=== PATIENT | male | born 1960 | race Caucasian/White ===

== ENCOUNTER 2025-03-18 09:06 | Day surgery (SDC) | payer OTHER, SELFPAY ==
--- NOTE | 2025-02-20 09:54 | HPS.HSE ---
Family Physician
-
Family Physician: NO INTERVIEW UNKNOWN
Chief Complaint
-
Persistent atrial fibrillation.
History of Present Illness
The patient is a 64 year old male presenting today for persistent atrial fibrillation. The patient reports symptoms such as heart 'fluttering', chest and throat tightness, shortness of breath, lightheadedness, and decreased exercise
capacity likely secondary to this diagnosis. He previously underwent a cardioversion in October 2024 for his arrhythmia. Despite multiple attempts, his cardioversion was ultimately unsuccessful. He is currently on pharmacological therapy with
Metoprolol Succinate. He reports compliance with Xarelto for oral anticoagulation due to a CHADS-VASc of 1. He notes that his current symptoms associated with his arrhythmia greatly interfere with his activities of daily living and overall impact
his quality of life. He is interested in pursuing pulmonary vein isolation for more definitive arrhythmia management. He denies any current complaints today such as chest pain and shortness of breath at rest, nausea, vomiting, diarrhea, dizziness,
cough, sore throat, or fever.
Medical History
Past Medical History
Past Medical History: Reports Other
Additional Past Medical History:
1. Persistent atrial fibrillation, status post cardioversion 10/2024; pharmacological therapy with Metoprolol Succinate and oral anticoagulation with Xarelto.
2. Hyperlipidemia.
3. Mild coronary artery calcifications.
4. Obstructive sleep apnea, compliant with CPAP.
5. GERD.
6. Diverticulosis.
7. Hepatic cyst.
8. Peripheral neuropathy.
9. Degenerative disc disease.
10. Left thyroid nodule on pre-ablation chest CT.
11. Fibromyalgia.
12. Obesity, BMI 34.9.
Past Surgical History: Reports Other
Additional Past Surgical History:
1. Cardioversion.
2. Colonoscopy.
Social History
Tobacco: Non-smoker
Alcohol: Other (Rare use reported. )
Personal:
Living: Other (He lives with his and 2 sons in a twin style home. )
Family History
Family History: Not pertinent
Allergies / Home Medications
Allergy/Medication List:
Home medications:
1. Cyanocobalamin 1000 mcg p.o. daily at 1 PM.
2. Duloxetine 60 mg p.o. daily at 1 PM.
3. Metoprolol Succinate 75 mg p.o. daily at 1 PM.
4. Multivitamin gummy 2 gummies p.o. daily at 1 PM.
5. Xarelto 20 mg p.o. daily at 1 PM.
Allergies: No known allergies.
Review of Systems
-
A 12 point ROS was completed and negative except as noted: Yes
Physical Exam
Vital Signs
Blood pressure: 122/84. Heart rate 95. Respirations 18. Pulse ox 95% on room air.
Height 6 feet, 1 inch. Weight 120.1 kg. BMI 34.9.
Physical Exam
General: Well Developed, Well Nourished and No Apparent Distress
HEENT: NormoCephalic, Moist mucous membranes, Atraumatic and PERRLA
Respiratory: Clear
Cardiac: Irregular Rhythm
GI: Soft, Non Tender, Non Distended and Other (Obese. )
Musculoskeletal: No Edema and Normal Gait & Station
Skin: Warm and Dry
Neuro: AO x 3 and Nonfocal/grossly intact
Psych: Anxious
Laboratory Results
-
DIAGNOSTIC STUDIES as of 02/20/2025: White blood cell count 4.5. Hemoglobin 15.7. Platelet count 207,000. PT 18.1. INR 1.47. Sodium 141. Potassium 4.4. BUN 18. Creatinine 1.0. Glucose 74. Calcium 9.5. Magnesium 2.1. AST 29. ALT 26. Albumin 5.0.
Type and screen A positive.
EKG 02/20/2025: Atrial fibrillation. Left axis deviation. Inferior infarct.
Chest CT 02/20/2025: Single, individual left and right superior and inferior pulmonary veins. No left atrial filling defect/thrombus is identified. Incidental 2.7 cm nodule of the left lobe of the thyroid gland, which could be more completely
evaluated with a thyroid gland ultrasound.
Impression/Plan
-
IMPRESSION/PLAN:
1. Persistent atrial fibrillation: The patient is in need of pulmonary vein isolation with Dr. Faustino Rubio on 03/18/2025. The benefits and risks of the procedure have been explained to the patient. The patient understands these risks and wishes to
proceed. He will not be required to undergo a pre-procedural transesophageal echocardiogram as he has been compliant with his home oral anticoagulation. He is aware to continue his Xarelto up until the night prior to his procedure. He will take no
medications the morning of his ablation.
2. Left-sided thyroid nodule on pre-ablation chest CT: His nodule should not impact the timing of his upcoming procedure. He was notified of his nodule through phone call. A copy of his chest CT was forwarded to his primary care physician, Dr. Crowley
Kiya, for further assessment.
[2025-02-20 13:41] LABS: % Basophils 1.1 % (0-2); % Eosinophils 1.6 % (0-6); % Immature Granulocytes 0.2 % (0-0.5); % Lymphocytes 33.3 % (20.5-51.1); % Monocytes 9.1 % (1.7-9.3); % Neutrophils 54.7 % (42.2-75.2); Absolute Basophils 0.1 10^3/uL (0-0.2); Absolute Eosinophils 0.1 10^3/uL (0-0.7); Absolute Lymphocytes 1.5 10^3/uL (1.2-3.4); Absolute Monocytes 0.4 10^3/uL (0.1-0.6); Absolute Neutrophils 2.5 10^3/uL (1.4-6.5); Hematocrit 45.5 % (39.0-52.0); Hemoglobin 15.7 g/dL (13.0-18.0); Mean Corp Hgb Conc. 34.5 g/dL (33.0-37.0); Mean Corpuscular Hgb 30.4 pg (27.0-31.0); Mean Corpuscular Volume 88.2 fL (80.0-94.0); Mean Platelet Volume 11.2 fL (7.4-10.4); Nucleated Red Blood Cells % 0 % (-); Platelet Count 207 10^3/uL (130-400); Red Blood Cell Count 5.16 10^6/uL (4.70-6.10); Red Cell Dist. Width 13.3 % (11.5-14.5); White Blood Cell Count 4.5 10^3/uL (4.8-10.8)
[2025-02-20 14:01] LABS: ALT (SGPT) 26 U/L (0-50); AST (SGOT) 29 U/L (17-59); Alkaline Phosphatase 59 U/L (38-126); Blood Urea Nitrogen 18 mg/dl (9-20); Calcium 9.5 mg/dl (8.4-10.2); Carbon Dioxide 22 mmol/L (22-30); Chloride 107 mmol/L (98-107); Glucose 74 mg/dl (70-99); Magnesium 2.1 mg/dl (1.6-2.3); Potassium 4.4 mmol/L (3.5-5.1); Sodium 141 mmol/L (135-145); Total Bilirubin 1.1 mg/dl (0.2-1.3); Total Protein 7.3 g/dl (6.3-8.2); eGFR > 60.00
[2025-02-20 14:03] LABS: INR 1.47; PT 18.1 Sec (11.4-14.6)
[2025-02-24 13:42] VITALS: BMI 34.9
[2025-03-18] VITALS (33 sets, daily range): BP systolic 81–140; BP diastolic 51–86; BMI 35.7
--- NOTE | 2025-03-18 10:31 | ITS.CL.ABL ---
[facility] - Ablation
Ablation
Procedure Report:
Primary Manager Creative: Dr William Avelar
Procedure Date: 03/18/2025
Patient History:
Patient is a pleasant 64-year-old male with a past medical history significant for hypercholesterolemia, sleep apnea, diverticulosis, obesity, and symptomatic persistent atrial fibrillation.
See H&P for complete details.
Indication:
Symptomatic persistent atrial fibrillation
Failed antiarrhythmic medical therapy
Failed cardioversion
Arrhythmia Specific History:
Prior Medical Therapies for Rate and Rhythm Control:
X Beta-jacqueline
[ ] Calcium channel-jacqueline
[ ] Amiodarone
[ ] Dronederone
[ ] Sotalol
X Flecainide
[ ] Dofetilide
[ ] Options limited by bradycardia
[ ] Options limited by comorbid renal disease
Prior Procedural Therapies for AF/AFL:
X Cardioversion
[ ] Pulmonary Vein Isolation
[ ] Posterior Wall Isolation
[ ] Additional lines (Specify)
[ ] Surgical Montes-MAZE or PVI (Specify)
Procedure Performed:
X AF ablation procedure (32466) -- includes LA/CS pacing, trans-septal, 3D mapping, + ICE
[ ] +IV drug (72050)
[ ] +Other Arrhythmia (65417)
X +Other AF Line/ablation (79737) -- PFA posterior wall, PFA floor, PFA roof
Risks and expected recovery has been explained in detail. Alternative options have been explored, and in a shared-decision making fashion we have decided that this was the most appropriate procedure.
Method
NPO status confirmed. Grounding pad applied. Defibrillator pads applied. Continuous surface ECG, pulse oximetry, and blood pressure were monitored. Procedure was performed under general anesthesia, with anesthesia services.
Both groins were clipped, prepped with Chloraprep, and draped in sterile fashion. Time out was called. Local anesthesia administered with bupivacaine. The right femoral vein was accessed for catheter placement, using ultrasound guidance (images
saved to record), micro-puncture needle/wire, and modified seldinger technique. 3 sheaths were placed. The following catheters were used:
[ ] Tacticath SE (D/F Curve) ablation catheter
X Viewflex 9Fr ICE catheter
X Inquiry decapolar 6Fr diagnostic catheter
[ ] CRD Hex 6Fr
[ ] Arctic Front Advance Cryoballoon ([ ]28mm[ ]23mm)
[ ] Achieve Advance mapping catheter ([ ]15mm[ ]20mm)
X FlexCath Contour 10 Fr with PulseSelect PFA Catheter
X Advisor HD Grid Mapping Catheter, SE
[ ] AcusGameLayers AcuNav 8 Fr ICE catheter
[ ]Other: [ ]
Intracardiac ultrasound (ICE) was carefully advanced into the right atrium to guide sheath placement over a J-wire, catheter placement, guide trans-septal puncture, identify potential complications, identify anatomic structures and ensure proper
contact between ablation catheter and tissue. A trace pericardial effusion located basal LV was noted at the initiation of case. This remained unchanged during procedure and at case completion.
Heparin was given prior to trans-septal puncture. Heparin was given to achieve and maintain a target ACT of 300-400 seconds throughout the procedure.
Trans-septal access was performed under ICE guidance. The trans-septal puncture was performed with a SafeSept wire through a Brockenbrough needle assembly through the steerable sheath. The wire was visualized as it entered the LSPV and system
advanced under ICE guidance and fluoroscopy into the LA. The Brockenbrough needle assembly, SafeSept wire and sheath dilator were removed under negative pressure. LA pressure was measured and recorded.
ICE and 3D mapping was performed to identify relevant cardiac structures. A careful 3D map was created to assess for regions of low-voltage and abnormal electrogram signals using HD grid mapping catheter and PulseSelect catheter. Additional mapping
was performed as outlined below.
Prior to ablation, glycopyrrolate was provided. PulseSelect catheter was advanced over J-wire to the ostium of each vein. Pulmonary vein isolation was performed with ostial and antral lesions in a circumferential manner. Contact was visualized via
EAM, ICE, fluoroscopy, and EGM signals. Posterior wall isolation was performed by anchoring the J-wire within the pulmonary vein and placing the PulseSelect catheter in contact with the posterior wall as visualized by aforementioned methods.
Following completion of ablation lesions, sinus rhythm was restored with a 200J synchronized DCCV and a post-ablation voltage/activation map was performed in sinus rhythm. Entrance and exit block were confirmed for each vein and the posterior wall.
Catheter and sheath were removed from the left atrium and post-ablation intracardiac echo evaluation was consistent with pre-ablation with no changes and no pericardial effusion and there is no left atrial thrombus or left ventricle thrombus seen.
Electrophysiology study was performed. Hemostasis was obtained with Vascade for each sheath and with manual pressure. Protamine was used for reversal.
Estimated Blood Loss
5 mL
Complications
None
Fluoroscopy: 2.9 minutes; 29.07 mGy; DAP 3.97
LA Pressure: Pre 8 mmHg, post 12 mmHg
Baseline Intervals:
Rhythm: AF
QRS: 93 ms
QT: 238 ms
Post-Procedure Intervals:
NJ: 144 ms
QRS: 102 ms
QT: 394 ms
QTc: 384 ms
AVWB: 370 ms
AVNERP: 600/300 ms
AERP: 600/220 ms
Recommendations
- Bedrest with straight-leg precautions as ordered
- Anticipate same day discharge if patient meeting clinical metrics
- Resume home medications as indicated
- Ok to resume anticoagulation tonight if patient and groin sites stable
- PPI daily for 30 days
- Plan for follow-up in office as scheduled
Faustino Rubio, DO, FACC, RS
Clinical Cardiac Yard Operator
cc: Dr William Avelar; Dr Carline Huertas
[2025-03-18 11:50] LABS: ACT-LR - POC 316 Seconds (116-155)
[2025-03-18 12:07] LABS: ACT-LR - POC 282 Seconds (116-155)
[2025-03-18 12:13] LABS: ACT-LR - POC 292 Seconds (116-155)
[2025-03-18 12:25] LABS: ACT-LR - POC 379 Seconds (116-155)
--- NOTE | 2025-03-18 14:13 | PTCARENOTE ---
Dr Joel at pt bedside speaking to pt and pt's .
[2025-03-18] MEDS: ANESTHETIC LOZENGE 1 LOZENGE PO (14:32)
[2025-03-18] MEDS: NSS 250 IV (16:05)
--- NOTE | 2025-03-18 16:36 | W.PN.UPDATE ---
Update Note
Progress Note Update
Pt seen post PFA. Right groin site without ht/bleeding. OOB ambulating, some hypotension with SBP 80s, with associated LH. Returned to bed and given NSS iv fluid bolus with good response, symptoms resolved and BP now >100. Resume Xarelto this
evening. Followup with Dr. Avelar as scheduled. Home today if groin site/tele/BP stable.
[2025-03-19 07:58] LABS: ACT-LR - POC > 397 Seconds (116-155)
== END 2025-03-18 17:20 | disposition home or self-care (01) ==
LOC: CATH 09:06
PROVIDERS: ATTENDING PHYSICIAN Internal Medicine Cardiovascular Disease; FAMILY PHYSICIAN Family Medicine; OTHER PHYSICIAN Internal Medicine Cardiovascular Disease
DX: I48.19 Other persistent atrial fibrillation (principal); E78.00 Pure hypercholesterolemia, unspecified; G47.33 Obstructive sleep apnea (adult) (pediatric); K21.9 Gastro-esophageal reflux disease without esophagitis; E04.1 Nontoxic single thyroid nodule; E66.9 Obesity, unspecified; Z68.34 Body mass index [BMI] 34.0-34.9, adult; I25.10 Atherosclerotic heart disease of native coronary artery without angina pectoris; Z79.01 Long term (current) use of anticoagulants
CPT/HCPCS: C1732; C1894; C1730; C1769; C1733; C1766; 36415; 75572; 80053; 83735; 85025; 85347; 85610; 86850; 86900; 86901; 93005; 93656; 93657; C1760; Q9967

== ENCOUNTER 2025-08-11 09:52 | Day surgery (SDC) | payer OTHER, SELFPAY ==
--- NOTE | 2025-08-11 11:45 | ITS.CL.CARDI ---
Internal Communications Manager - Cardioversion
Cardioversion
Procedure Report:
Procedure: Direct current electrical cardioversion
Pre-operative diagnosis: Persistent atrial fibrillation
Post-operative diagnosis: Persistent atrial fibrillation status post DC cardioversion to sinus rhythm
Anesthesia: MAC
Attending Physician: Solomon Mckeon MD
Procedure Description: The patient was brought to the electrophysiology laboratory in the fasting state. Adherence to anticoagulation regimen was confirmed. Informed consent was obtained from the patient prior to the start of the procedure.
Electrodes were placed on the patient and connected to an external defibrillator. Monitoring of blood pressure, ECG tracings, and pulse oximetry was initiated. The pads were applied to the patient in the anterior and posterior positions. The patient
was sedated by the anesthesiologist. A 200 joule biphasic synchronized shock was delivered to the patient under MAC anesthesia. Sinus rhythm was successfully restored. The patient recovered uneventfully from MAC anesthesia. There were no immediate
post-procedure complications. The patient left the lab in good condition. The attending physician was present throughout the entire procedure.
Impression: Successful direct current cardioversion with adventism of sinus rhythm after one 200 joule biphasic synchronized shock.
== END 2025-08-11 12:44 | disposition home or self-care (01) ==
LOC: CATH 09:52
PROVIDERS: ATTENDING PHYSICIAN Internal Medicine Cardiovascular Disease; FAMILY PHYSICIAN Family Medicine
DX: I48.19 Other persistent atrial fibrillation (principal); R00.1 Bradycardia, unspecified
CPT/HCPCS: 92960; 93005

== ENCOUNTER 2025-08-27 09:51 | Day surgery (SDC) | payer OTHER, SELFPAY ==
[2025-08-27 10:01] VITALS: BMI 36.3
--- NOTE | 2025-08-27 10:44 | ITS.CL.CARDI ---
Extrusion Line Operator - Cardioversion
Cardioversion
Procedure Report:
Date of Procedure: 08/27/25
Procedure: Cardioversion
Indication: Symptomatic atrial fibrillation
Performing Physician: Singh Steward MD
Technique: The patient was brought to the holding area. Signed informed consent was obtained. A time out was called and performed. The patient was anesthetized by the anesthesia service. Anticoagulation status was reviewed and appropriate. R2 pads
were placed anteriorly and posteriorly. A 200 J synchronized biphasic shock restored normal sinus rhythm without significant bradycardia. There were no complications.
Conclusion: Uncomplicated cardioversion from atrial fibrillation to sinus rhythm.
Recommendation: Routine post cardioversion care. Continue termite control representative anticoagulation.
== END 2025-08-27 11:19 | disposition home or self-care (01) ==
LOC: CATH 09:51
PROVIDERS: ATTENDING PHYSICIAN Internal Medicine Cardiovascular Disease; FAMILY PHYSICIAN Family Medicine
DX: I48.91 Unspecified atrial fibrillation (principal); Z79.01 Long term (current) use of anticoagulants; I49.1 Atrial premature depolarization
CPT/HCPCS: 92960; 93005